=== PATIENT | male | born 1960 | race African-American/Black ===

== ENCOUNTER 2017-09-23 09:13 | Emergency (ER) | payer BC, OTHER ==
[~2017-09-23] VITALS: Ht 180.3 cm; Wt 93.0 kg
[~2017-09-23 09:13] MED LIST: ASPI81TA82 PO; CLON.2 PO; GLUCTAB PO; IBUP600T26 PO; ROBA750T3 PO; VERA120T3 PO
[2017-09-23 09:18] VITALS: BP 175/98; PULSE 87; RESP 16; TEMP 98.4; O2SAT 99
[2017-09-23] MEDS ORDERED: SODIUM CHLOR 0.9% 1000 ML INJ 1,000 ML IV SCH (09:35)
[2017-09-23] MEDS ORDERED: CLON0.2T PO (09:39)
[2017-09-23] MEDS ORDERED: METF-382 PO (09:39)
[2017-09-23] MEDS ORDERED: FURO1TAB62 PO (09:39)
[2017-09-23] MEDS ORDERED: VERA120T3 PO (09:39)
[2017-09-23] MEDS ORDERED: KETOROLAC TROMETHAMINE 30 MG/ML (IVP) VIAL IVP ONE (09:45)
[2017-09-23] MEDS ORDERED: SODIUM CHLORIDE 0.9% FLUSH 10 ML FLUSH IV FLUSH PRN (09:45)
[2017-09-23 10:02] LABS: BILIRUBIN, URINE NEG (NEG); BLOOD, URINE SMALL (NEG); GLUCOSE,URINE 1000 mg/dL (NEG); KETONE, URINE NEG (NEG); MUCUS URINE FEW /lpf (OCC); NITRITE,URINE NEG (NEG); PH, URINE 6.5 (5.0-8.5); URINE COLOR LIGHT-YELLOW (YELLW/STRAW); URINE LEUKOCYTE ESTERASE SMALL (NEG)
[2017-09-23 10:10] LABS: AUTOMATED NEUTROPHIL # 2.6 TH/MM3 (1.8-7.7); BASOPHIL % 0.9 % (0.0-2.0); EOSINOPHIL # 0.1 TH/MM3 (0-0.4); EOSINOPHIL % 1.5 % (0.0-4.0); HEMATOCRIT 42.2 % (39.0-51.0); HEMOGLOBIN 14.2 GM/DL (13.0-17.0); LYMPH % 29.7 % (9.0-44.0); LYMPHOCYTE # 1.3 TH/MM3 (1.0-4.8); MEAN CELL VOLUME 94.4 FL (80.0-100.0); MEAN CORPUSCULAR HEMOGLOBIN 31.8 PG (27.0-34.0); MEAN CORPUSCULAR HGB CONC 33.7 % (32.0-36.0); MEAN PLATELET VOLUME 8.2 FL (7.0-11.0); MONO % 10.2 % (0.0-8.0); MONOCYTE # 0.5 TH/MM3 (0-0.9); NEUT % 57.7 % (16.0-70.0); PLATELET COUNT 245 TH/MM3 (150-450); RED BLOOD COUNT 4.47 MIL/MM3 (4.50-5.90); RED CELL DISTRIBUTION WIDTH 14.2 % (11.6-17.2); WHITE BLOOD COUNT 4.5 TH/MM3 (4.0-11.0)
[2017-09-23 10:22] LABS: ALBUMIN 3.6 GM/DL (3.4-5.0); AST (GOT) 20 U/L (15-37); BICARBONATE 33.2 MEQ/L (21.0-32.0); BLOOD UREA NITROGEN 15 MG/DL (7-18); CALCIUM 9.6 MG/DL (8.5-10.1); CHLORIDE 102 MEQ/L (98-107); CREATININE 1.53 MG/DL (0.60-1.30); GLOMERULAR FILTRATION RATE 57 ML/MIN (>89); GLUCOSE,RANDOM 167 MG/DL (74-106); SODIUM (NA) 141 MEQ/L (136-145)
[2017-09-23 10:23] LABS: ALT (GPT) 20 U/L (12-78)
[2017-09-23 10:25] LABS: ALKALINE PHOSPHATASE 57 U/L (45-117); TOTAL BILIRUBIN ADULT 0.2 MG/DL (0.2-1.0); TOTAL PROTEIN 7.7 GM/DL (6.4-8.2)
--- NOTE | 2017-09-23 10:30 | PD ---
HPI Chief Complaint: Pain: Acute or Chronic Time Seen by Provider: 09:28 Travel History International Travel<30 days: No Contact w/Intl Traveler<30days: No Traveled to known affect area: No History of Present Illness HPI Patient is a 57 year old male who comes in complaining of left groin pain. He says that last week, he felt a pain and noticed some swelling to his testicle. He says that it has gradually gotten better, but he still feels pain to his groin and sometimes to his left flank. He has had kidney stones in the past and says this feels similar. He has taken Ibuprofen for pain with minimal relief. He denies nausea, vomiting, fever or chills. He has noticed his urine has been dark. Severity is mild to moderate. PFSH Past Medical History Arthritis: No Asthma: No Autoimmune Disease: No Blood Disorders: No Anxiety: No Depression: No Heart Rhythm Problems: No Cancer: No Cardiac Catheterization: Yes Cardiovascular Problems: Yes (borderline) High Cholesterol: No Chemotherapy: No Chest Pain: Yes Congestive Heart Failure: No COPD: No Cerebrovascular Accident: No Diabetes: Yes Patient Takes Glucophage: Yes Diminished Hearing: No Endocrine: Yes GERD: No Glaucoma: No Genitourinary: Yes (HX OF UTI'S; HAS CHRONIC LT FLANK PAIN) Headaches: No Hepatitis: No Hiatal Hernia: No Hypertension: Yes Immune Disorder: No Kidney Stones: No Musculoskeletal: No Neurologic: No Psychiatric: No Reproductive: No Respiratory: No Immunizations Current: Yes Migraines: No Myocardial Infarction: No Radiation Therapy: No Renal Failure: No Seizures: No Sickle Cell Disease: No Sleep Apnea: No Thyroid Disease: No Ulcer: No Tetanus Vaccination: < 5 Years Influenza Vaccination: Yes Past Surgical History Abdominal Surgery: No AICD: No Appendectomy: No Arteriovenous Shunt: No Cardiac Surgery: No Cholecystectomy: No Coronary Artery Bypass Graft: No Ear Surgery: No Endocrine Surgery: No Eye Surgery: No Genitourinary Surgery: No Gynecologic Surgery: No Insulin Pump: No Joint Replacement: No Oral Surgery: No Pacemaker: No Thoracic Surgery: No Other Surgery: No Social History Alcohol Use: Yes (OCC) Tobacco Use: No Substance Use: No Allergies-Medications (Allergen,Severity, Reaction): Coded Allergies: codeine (Unverified Allergy, Severe, N/V, 09/23/17) pt states he went to a concert when he was 14 and took this while he was drinking and it made him nauseated sulfamethoxazole (Unverified Allergy, Severe, N/V, 09/23/17) trimethoprim (Unverified Allergy, Severe, N/V, 09/23/17) Reported Meds & Prescriptions Reported Meds & Active Scripts Active Reported Lasix (Furosemide) 20 Mg Tab 20 Mg PO DAILY Verapamil (Verapamil HCl) 120 Mg Tab 120 Mg PO BID Metformin ER (Metformin HCl) 1,000 Mg Annabel 1,000 Mg PO DAILY With evening meal Clonidine (Clonidine HCl) 0.2 Mg Tab 0.2 Mg PO BID Review of Systems Except as stated in HPI: all other systems reviewed are Neg General / Constitutional: No: Fever, Chills HENT: No: Headaches, Lightheadedness Cardiovascular: No: Chest Pain or Discomfort Respiratory: No: Shortness of Breath Gastrointestinal: No: Nausea, Vomiting Genitourinary: Positive: Flank Pain Skin: No Rash, No Change in Pigmentation Neurologic: No: Weakness Physical Exam Narrative GENERAL: Awake and alert, in no acute distress. SKIN: Focused skin assessment warm/dry. No wounds or signs of infection. HEAD: Atraumatic. Normocephalic. EYES: Pupils equal and round. No scleral icterus. No injection or drainage. ENT: Mucous membranes pink and moist. NECK: Trachea midline. No JVD. CARDIOVASCULAR: Regular rate and rhythm. No murmur appreciated. RESPIRATORY: No accessory muscle use. Clear to auscultation. Breath sounds equal bilaterally. GASTROINTESTINAL: Abdomen soft, non-tender, nondistended. No CVA tenderness. : Exam performed in the presence of a nurse. There is no testicular swelling or pain. No hernia palpated. MUSCULOSKELETAL: No obvious deformities. No clubbing. No cyanosis. No edema. NEUROLOGICAL: Awake and alert. No obvious cranial nerve deficits. Motor grossly within normal limits. Normal speech. PSYCHIATRIC: Appropriate mood and affect; insight and judgment normal. Data Data Last Documented VS Vital Signs Date Time Temp Pulse Resp B/P (MAP) Pulse Ox O2 Delivery O2 Flow Rate FiO2 09/23/17 09:34 88 18 09/23/17 09:18 98.4 175/98 (123) 99 Orders Orders Complete Blood Count With Diff (09/23/17 09:35) Comprehensive Metabolic Panel (09/23/17 09:35) Urinalysis - C+S If Indicated (09/23/17 09:35) Ct Abd/Pel W/O Iv Contrast (09/23/17 09:35) Iv Access Insert/Monitor (09/23/17 09:35) Ecg Monitoring (09/23/17 09:35) Oximetry (09/23/17 09:35) Sodium Chlor 0.9% 1000 Ml Inj (Ns 1000 M (09/23/17 09:35) Sodium Chloride 0.9% Flush (Ns Flush) (09/23/17 09:45) Ketorolac Inj (Toradol Inj) (09/23/17 09:45) Tramadol (Ultram) (09/23/17 11:30) Labs Laboratory Tests Test 09/23/17 09:45 White Blood Count 4.5 TH/MM3 Red Blood Count 4.47 MIL/MM3 Hemoglobin 14.2 GM/DL Hematocrit 42.2 % Mean Corpuscular Volume 94.4 FL Mean Corpuscular Hemoglobin 31.8 PG Mean Corpuscular Hemoglobin Concent 33.7 % Red Cell Distribution Width 14.2 % Platelet Count 245 TH/MM3 Mean Platelet Volume 8.2 FL Neutrophils (%) (Auto) 57.7 % Lymphocytes (%) (Auto) 29.7 % Monocytes (%) (Auto) 10.2 % Eosinophils (%) (Auto) 1.5 % Basophils (%) (Auto) 0.9 % Neutrophils # (Auto) 2.6 TH/MM3 Lymphocytes # (Auto) 1.3 TH/MM3 Monocytes # (Auto) 0.5 TH/MM3 Eosinophils # (Auto) 0.1 TH/MM3 Basophils # (Auto) 0.0 TH/MM3 CBC Comment DIFF FINAL Differential Comment Urine Color LIGHT-YELLOW Urine Turbidity CLEAR Urine pH 6.5 Urine Specific Concrete 1.015 Urine Protein NEG mg/dL Urine Glucose (UA) 1000 mg/dL Urine Ketones NEG mg/dL Urine Occult Blood SMALL Urine Nitrite NEG Urine Bilirubin NEG Urine Urobilinogen LESS THAN 2.0 MG/DL Urine Leukocyte Esterase SMALL Urine RBC 13 /hpf Urine WBC 2 /hpf Urine Mucus FEW /lpf Microscopic Urinalysis Comment CULT NOT INDICATED Blood Urea Nitrogen 15 MG/DL Creatinine 1.53 MG/DL Random Glucose 167 MG/DL Total Protein 7.7 GM/DL Albumin 3.6 GM/DL Calcium Level 9.6 MG/DL Alkaline Phosphatase 57 U/L Aspartate Amino Transf (AST/SGOT) 20 U/L Alanine Aminotransferase (ALT/SGPT) 20 U/L Total Bilirubin 0.2 MG/DL Sodium Level 141 MEQ/L Potassium Level 3.9 MEQ/L Chloride Level 102 MEQ/L Carbon Dioxide Level 33.2 MEQ/L Anion Gap 6 MEQ/L Estimat Glomerular Filtration Rate 57 ML/MIN MDM Medical Decision Making Medical Screen Exam Complete: Yes Emergency Medical Condition: Yes Medical Record Reviewed: Yes Differential Diagnosis UTI vs Hernia vs renal stone Narrative Course Patient is a 57-year-old male who comes in complaining of left-sided groin pain. Exam shows no acute abnormalities. IV established, labs sent. Urinalysis is positive for blood. There are no other acute abnormalities. CT abdomen and pelvis performed shows a 3 mm nonobstructing renal stone. Patient advised of his results. He is advised to follow-up with urology regarding stone as well as his prostate. Given IV fluids, Toradol, tramadol. He is requesting a work note and pain medicine to go home with. He will be discharged home at this time. Advised return anytime for any worsening symptoms. Diagnosis Primary Impression: Renal stone Referrals: Bhanu Vanessa MD call for appointment Additional Instructions: Drink plenty of fluids. Take Tylenol or Ibuprofen as needed for pain. You can take Tramadol for severe pain. Follow up with urology. Return to the ED as needed for any worsening symptoms. Scripts Tramadol (Tramadol) 50 Mg Tab 50 MG PO Q6H Y for PAIN, #7 TAB 0 Refills Prov: Mariann Davison MD 09/23/17 Disposition: DISCHARGE HOME Condition: Stable Mariann Davison MD Sep 23, 2017 10:30
--- NOTE | 2017-09-23 11:05 | RADRPT ---
EXAM DATE/TIME: 09/23/2017 10:40 [facility] COMPARISON: No previous studies available for comparison. INDICATIONS : Left groin pain, dark urine. ORAL CONTRAST: No oral contrast ingested. RADIATION DOSE: 8.48 CTDIvol (mGy) MEDICAL HISTORY : Cardiovascular disease. Hypertension. Renal calculi.Diabetes, chronic left flank pain. SURGICAL HISTORY : None. ENCOUNTER: Initial ACUITY: 1 day PAIN SCALE: 7/10 LOCATION: Left groin TECHNIQUE: Volumetric scanning of the abdomen and pelvis was performed. Using automated exposure control and ad justment of the mA and/or kV according to patient size, radiation dose was kept as low as reasonably achievable to obtain optimal diagnostic quality images. DICOM format image data is available electro nically for review and comparison. FINDINGS: LOWER LUNGS: The visualized lower lungs are clear. LIVER: The liver is enlarged. There is a 12 mm low density lesion within the left lobe which is indeterminat e on this unenhanced examination. There is no dilation of the biliary tree. No calcified gallstones. SPLEEN: Normal size without lesion. PANCREAS: Within normal limits. KIDNEYS: Normal in size and shape. There is no mass or hydronephrosis. There is a tiny 3 mm calcified nonobst ructing lower pole left renal calculus. No acute obstructive uropathy is noted. ADRENAL GLANDS: Within normal limits. VASCULAR: There is no aortic aneurysm. BOWEL/MESENTERY: The stomach, small bowel, and colon demonstrate no acute abnormality. There is no free intraperitone al air or fluid. Chronic haziness of the mesenteric fat is again noted and has been described on prev ious scans dating back to October of 2007 and is nonspecific. ABDOMINAL WALL: Within normal limits. RETROPERITONEUM: There is no lymphadenopathy. BLADDER: No wall thickening or mass. REPRODUCTIVE: The prostate gland is enlarged and contains central consultations. INGUINAL: There is no lymphadenopathy or hernia. MUSCULOSKELETAL: Mild degenerative changes and scoliosis of the lumbar spine. CONCLUSION: 1. Tiny 3 mm calcified nonobstructing left lower pole renal calculus. 2. Chronic mesenteric haziness which has been described on previous examinations dating back to October. 3. Hepatomegaly. 4. 12 mm low density lesion within left lobe of the liver which is nonspecific. 5. Enlarged prostate with central calcifications. 6. Mild degenerative changes and scoliosis of the lumbar spine. Tushar Trevino MD on September 23, 2017 at 10:56 Board Certified Radiologist. This report was verified electronically.
[2017-09-23] MEDS ORDERED: TRAM50TA PO (11:25)
[2017-09-23] MEDS ORDERED: traMADol HCL 50 MG TAB PO ONE (11:30)
== END 2017-09-23 12:08 | disposition home or self-care (01) ==
LOC: NEPD 09:13
DX: N20.0 Calculus of kidney (principal); E11.9 Type 2 diabetes mellitus without complications; I10 Essential (primary) hypertension; Z87.442 Personal history of urinary calculi
CPT/HCPCS: 74176; 80053; 81001; 85025; 96361; 96374; 99284; J1885; J7030